=== PATIENT | male | born 1945 | race Asian ===

== ENCOUNTER 2019-01-21 17:49 | Emergency (ER) | payer OTHER ==
[~2019-01-21] VITALS: Ht 152.4 cm; Wt 72.6 kg
[2019-01-21 17:53] VITALS: BP 121/62; TEMP 99.3
[2019-01-21 19:04] LABS: PLATELET COUNT 251 K/uL (142-355)
[2019-01-21 19:06] LABS: POTASSIUM 3.6 mmol/L (3.6-5.2)
[2019-01-21] MEDS ORDERED: METO10IN2 MT (23:26)
[2019-01-21] MEDS ORDERED: AMLODIPINE BESYLATE PO (23:27)
[2019-01-21] MEDS ORDERED: ASPIRIN 81 LOW81 MG PO (23:28)
[2019-01-21] MEDS ORDERED: BENAZEPRIL5 MG PO (23:29)
[2019-01-21] MEDS ORDERED: JANUVIA100 MG PO (23:30)
[2019-01-21] MEDS ORDERED: SERT50TA PO (23:31)
[2019-01-21] MEDS ORDERED: TAMS0.4C PO (23:33)
[2019-01-21] MEDS ORDERED: PANTOPRAZOLE SO20 MG PO (23:34)
[2019-01-21] MEDS ORDERED: DIVALPROEX250 M1 PO (23:37)
[2019-01-21] MEDS ORDERED: EQ STOOL SOFTE100 MG PO (23:39)
[2019-01-21] MEDS ORDERED: KLOR-CON SPRIN10 MEQ PO (23:41)
[2019-01-21] MEDS ORDERED: [UNRECOGNIZED DRUG - OTHER] OPTH (23:44)
[2019-01-21] MEDS ORDERED: CLONAZEP ODT0.25 MG PO (23:45)
[2019-01-21] MEDS ORDERED: SEROQUEL100 MG PO (23:48)
[2019-01-21] MEDS ORDERED: MILK OF MAGNESI1 SUS PO (23:54)
[2019-01-21] MEDS ORDERED: MECLIZINE12.5 MG PO (23:55)
[2019-01-21] MEDS ORDERED: PROZAC10 MG PO (23:57)
[2019-01-22] MEDS ORDERED: JANUVIA100 MG PO (00:06)
== END 2019-01-21 21:09 | disposition other institution (70) ==
LOC: ED 17:49
PROVIDERS: Family Medicine
DX: R46.89 Other symptoms and signs involving appearance and behavior (principal); I10 Essential (primary) hypertension; Z04.6 Encounter for general psychiatric examination, requested by authority
CPT/HCPCS: 36415; 80053; 85027; 93005; 99285